=== PATIENT | female | born 1945 | race Caucasian/White ===

== ENCOUNTER → 2018-04-20 09:06 | Outpatient (CLI) | payer MEDICARE, OTHER, SELFPAY ==
[2018-04-20 10:35] LABS: Hemoglobin A1C% w Est Avg Glu 6.5 % (4.0-6.0)
== END ==
PROVIDERS: PCP Internal Medicine; Visit Provider Internal Medicine
DX: E11.9 Type 2 diabetes mellitus without complications (principal)
CPT/HCPCS: 36415; 83036

== ENCOUNTER → 2018-07-28 13:11 | Outpatient (CLI) | payer MEDICARE, OTHER, SELFPAY ==
[2018-07-28 17:01] LABS: Aspartate Aminotransferase 65 IU/L (14-36); BUN Creatinine Ratio 28.2 (6-22); Blood Urea Nitrogen 31 mg/dL (7-17); Calcium 10.3 mg/dL (8.4-10.2); Carbon Dioxide 28 mmol/L (22-32); Chloride 100 mmol/L (98-107); Cholesterol 173 mg/dL (140-199); Estimated Glomerular Filt Rate 48.6 mL/min (>60); Glucose 106 mg/dL (80-110); HDL Cholesterol 42 mg/dL (40-60); HEMOLYSIS < 15 (0-50); Potassium 4.3 mmol/L (3.4-5.1); Sodium 143 mmol/L (137-145); Triglycerides 491 mg/dL (35-150)
== END ==
PROVIDERS: Visit Provider Internal Medicine
DX: E78.2 Mixed hyperlipidemia (principal); I10 Essential (primary) hypertension
CPT/HCPCS: 36415; 80048; 80061; 84450

== ENCOUNTER → 2018-09-30 09:45 | Outpatient (CLI) | payer MEDICARE, OTHER, SELFPAY ==
--- NOTE | 2018-09-30 11:00 | DI.MG.S_ITS ---
Patient Name: ALTON TORIBIO date: 1945 Sex: F Attending Physician: Shima Indications: Date: 09/30/2018 10:02 At the request of: EVERARDO CHAN Procedure: MM screening mammo BI BILATERAL DIGITAL SCREENING MAMMOGRAM 3D/2D WITH CAD: 09/30/2018 CLINICAL: Routine screening. Family history of breast cancer. Comparison is made to exams dated: 08/28/2017 mammogram, 08/23/2016 mammogram, and 08/21/2015 mammogram - [facility]. The tissue of both breasts is extremely dense, which lowers the sensitivity of mammography. Current study was also evaluated with a Computer Aided Detection (CAD) system. There are benign post operative findings in the left breast. There also are benign vascular calcifications in both breasts. No significant masses, calcifications, or other findings are seen in either breast. There has been no significant interval change. IMPRESSION: There is no mammographic evidence of malignancy. A 1 year screening mammogram is recommended. This exam was interpreted at Station ID: [id number]. NOTE: For mammograms, a report in lay terms will be sent to the patient. Approximately 15% of breast malignancies will not be visualized mammographically. In the management of a palpable breast mass, a negative mammogram must not discourage biopsy of a clinically suspicious lesion. Electronically Signed By: Shell carroll/raoul:10/02/2018 09:25:05 letter sent: Normal Exam ACR BI-RADS Category 2: Benign Finding(s) 3342F Continued Report - Page 2 of 2 Patient Name: ALTON TORIBIO date: 1945 Sex: F Attending Physician: Shima Indications: Date: 09/30/2018 10:02 At the request of: EVERARDO CHAN Procedure: MM screening mammo BI
== END ==
PROVIDERS: PCP Internal Medicine; Visit Provider Internal Medicine
DX: Z12.31 Encounter for screening mammogram for malignant neoplasm of breast (principal); Z80.3 Family history of malignant neoplasm of breast
CPT/HCPCS: 77063; 77067

== ENCOUNTER → 2019-08-18 10:07 | Outpatient (CLI) | payer MEDICARE, OTHER, SELFPAY ==
--- NOTE | 2019-08-18 | DI.RAD.S_ITS ---
PROCEDURE: XR TOE LT MIN 2V INDICATIONS: Ganglion, unspecified ankle and foot TECHNIQUE: 3 views of the left toe(s) acquired. COMPARISON: None. FINDINGS: Bones: No fractures or dislocations. There is circumscribed, small periarticular erosive changes along the medial border of the first proximal phalanx. No suspicious bony lesions. Soft tissues: Soft tissue nodule overlies the dorsal medial aspect of the first interphalangeal joint. No soft tissue calcifications visible.. IMPRESSION: Bone and soft tissue changes adjacent to the first interphalangeal joint suspicious for gout. Osteoarthritis can also have this appearance. Dictated by: Jennifer Montenegro M.D. on 08/18/2019 at 15:06 Approved by: Jennifer Montenegro M.D. on 08/18/2019 at 15:09
== END ==
PROVIDERS: PCP Internal Medicine; Visit Provider Internal Medicine
DX: M67.472 Ganglion, left ankle and foot (principal)
CPT/HCPCS: 73660

== ENCOUNTER → 2019-10-01 10:49 | Outpatient (CLI) | payer MEDICARE, OTHER, SELFPAY ==
--- NOTE | 2019-10-01 | DI.MG.S_ITS ---
BILATERAL DIGITAL SCREENING MAMMOGRAM 3D/2D WITH CAD: 10/01/2019 CLINICAL: Routine screening. Comparison is made to exams dated: 08/28/2017 mammogram, 08/23/2016 mammogram, and 08/21/2015 mammogram - [facility]. The tissue of both breasts is extremely dense, which lowers the sensitivity of mammography. Current study was also evaluated with a Computer Aided Detection (CAD) system. There are benign vascular calcifications in both breasts. There also are benign post operative findings in the left breast. No significant masses, calcifications, or other findings are seen in either breast. There has been no significant interval change. IMPRESSION: There is no mammographic evidence of malignancy. A 1 year screening mammogram is recommended. This exam was interpreted at Station ID: [id number]. NOTE: For mammograms, a report in lay terms will be sent to the patient. Approximately 15% of breast malignancies will not be visualized mammographically. In the management of a palpable breast mass, a negative mammogram must not discourage biopsy of a clinically suspicious lesion. Electronically Signed By: Jennifer echeverria/raoul:10/01/2019 13:20:16 letter sent: Normal Exam ACR BI-RADS Category 2: Benign Finding(s) 3342F
== END ==
PROVIDERS: PCP Internal Medicine; Visit Provider Internal Medicine
DX: Z12.31 Encounter for screening mammogram for malignant neoplasm of breast (principal)
CPT/HCPCS: 77063; 77067

== ENCOUNTER → 2020-04-19 06:43 | Outpatient (CLI) | payer MEDICARE, OTHER, SELFPAY ==
--- NOTE | 2020-04-19 07:08 | DI.ECHO.S_ITS ---
Echocardiogram Report + + :Name: ALTON TORIBIO Study Date: 04/19/2020 Height: 62 in : :[facility] Weight: 145 lb : : Gender: Female BSA: 1.7 m2 : :: 1945 Age: 75 yrs BP: 108/64 mmHg: :Reason For Study: Shortness of breath : :Ordering Physician: MANNY, : :JOSUÉ Performed By: Sherly Valentine : :Referring: JOSUÉ BRYANT : + + Interpretation Summary The left ventricle appears normal in size and systolic function with an estimated ejection fraction of 60 to 65% without any focal wall motion abnormality. Diastolic function cannot be accurately assessed because of the presence of atrial fibrillation. The right ventricle appears normal in size and systolic function. Right ventricular systolic pressure is estimated to be at least 38 mmHg with a CVP estimated at 3 mmHg. There is moderate left atrial enlargement while right atrial size is normal. There is moderate to severe posterior mitral annular calcification which extends onto the posterior mitral valve leaflet which is relatively immobile, producing mild mitral stenosis with a mean gradient of 3.4 mmHg. There is mild to moderate eccentric mitral regurgitation directed anteriorly. There is moderate tricuspid regurgitation. The patient was in atrial fibrillation at 65 to 75 bpm throughout the exam. Procedure: A two-dimensional transthoracic echocardiogram with color flow and Doppler was performed. The study quality was technically adequate. There is no prior echocardiogram noted for this patient. The patient was in atrial fibrillation with heart rates between 65-75 bpm during the exam. Left Ventricle: The left ventricle is normal in size, wall thickness, and systolic function without any focal wall motion abnormalities. The estimated left ventricular end diastolic volume is 59 ml. The ejection fraction is estimated to be 60-65%. Diastolic function could not be accurately assessed due to atrial fibrillation. Right Ventricle: The right ventricle is normal in size and function. Atria: The left atrium is moderately dilated. Right atrial size is normal. There is no Doppler evidence for an interatrial shunt. Mitral Valve: There is moderate to severe posterior mitral annular calcification which extends onto the posterior mitral valve leaflet which is relatively immobile, producing mild mitral stenosis with a mean gradient of 3.4 mmHg. The mitral valve mean gradient is 3.4 mmHg. There is mild to moderate mitral regurgitation. The mitral regurgitant jet is eccentrically directed. Aortic Valve: The aortic valve is trileaflet. The aortic valve is mildly calcified. The aortic valve opens well. There is no aortic valve stenosis. No aortic regurgitation is present. Tricuspid Valve: The tricuspid valve is normal in structure and function. There is moderate tricuspid regurgitation. The right ventricular systolic pressure is estimated to be at least 38 mmHg based on an estimated right atrial pressure of 3 mm Hg. Pulmonic Valve: The pulmonic valve is normal in structure and function. There is no pulmonic valvular regurgitation. Great Vessels: The aortic root is normal size. The dimensions of the ascending aorta are normal. The IVC is of normal diameter and collapses greater than 50% with a sniff. This suggests a low right atrial pressure of 3 mm Hg. Pericardium/ Pleura There is no pericardial effusion. There is no pleural effusion. MMode/2D Measurements & Calculations LVIDd: 3.8 cm LVOT diam: 1.9 cm LVIDs: 2.6 cm Ao root diam: 2.9 cm FS: 30.2 % asc Aorta Diam: 2.7 cm EPSS: 0.95 cm Ao Arch Diam (Prox Trans): 2.8 cm IVSd: 1.0 cm LVPWd: 0.98 cm LV paredes. diameter/BSA (cm/m^2): 2.3 LV sys. diameter/BSA (cm/m^2): 1.6 LA A2 area: 20.5 cm2 RA long axis: 5.0 cm LA A4 area: 24.1 cm2 RA area: 16.2 cm2 LA length (vol): 5.7 cm RA vol: 44.7 ml LA vol: 73.6 ml RA : 26.8 ml/m2 LA vol index: 44.1 ml/m2 IVC diam: 1.6 cm RVD1 (basal): 3.7 cm TAPSE: 1.7 cm Doppler Measurements & Calculations Ao V2 max: 126.0 cm/sec LVOT Max Mahesh: 74.3 cm/sec Ao V2 mean: 85.8 cm/sec LV V1 max P.2 mmHg Ao max P.3 mmHg LV V1 VTI: 17.3 cm Ao mean P.2 mmHg DIAMOND(I,D): 1.8 cm2 Ao V2 VTI: 27.7 cm DIAMOND(V,D): 1.7 cm2 sev ratio: 0.62 DIAMOND indexed to BSA (cm^2/m^2): 1.1 MV E max mahesh: 135.9 cm/sec TR max mahesh: 289.5 cm/sec MV A max mahesh: 1.2 cm/sec TR max P.9 mmHg MV E/A: 112.8 PA V2 max: 63.2 cm/sec Med Peak E' Mahesh: 5.9 cm/sec PA V2 mean: 45.8 cm/sec E/E' med: 23.0 PA mean P.93 mmHg Lat Peak E' Mahesh: 9.1 cm/sec PA pr(Accel): 25.9 mmHg E/E' lat: 15.0 E/e' average: 19.0 MV dec time: 0.23 sec MVA(VTI): 1.6 cm2 MV V2 mean: 78.2 cm/sec SV(LVOT): 49.8 ml MV mean P.4 mmHg MV V2 VTI: 30.8 cm Reading Physician:SPIKE
== END ==
PROVIDERS: PCP Internal Medicine; Referring Provider Internal Medicine; Visit Provider Internal Medicine
DX: I08.1 Rheumatic disorders of both mitral and tricuspid valves (principal); R06.02 Shortness of breath; I48.91 Unspecified atrial fibrillation
CPT/HCPCS: 93306

== ENCOUNTER → 2020-08-30 15:23 | Outpatient (ROUT) | payer MEDICARE, OTHER, SELFPAY ==
[2020-08-30 15:37] LABS: Add Manual Diff / Slide Review NO; Basophils Absolute Auto 100 /uL (0-100); Basophils Percent Auto 0.8 % (0-2); Eosinophils Absolute Auto 200 /uL (0-450); Eosinophils Percent Auto 2.8 % (2-4); Hematocrit 35.9 % (36-46); Hemoglobin 11.8 g/dL (12.0-16.0); Lymphocytes Absolute Auto 1600 /uL (1100-4500); Lymphocytes Percent Auto 21.4 % (25-40); Mean Corpuscular Hemoglobin 29.2 PG (26-34); Mean Corpuscular Volume 88.7 fL (80-100); Monocytes Absolute Auto 600 /uL (0-900); Monocytes Percent Auto 7.6 % (3-14); Neutrophils Absolute Auto 5000 /uL (1500-7000); Neutrophils Percent Auto 67.4 % (50-75); Platelet Count 199 X10^3/uL (150-400); Red Blood Cell Count 4.05 X10^6/uL (4.0-5.2); Red Cell Distribution Width 14.2 % (11.6-14.8); White Blood Cell Count 7.4 X10^3/uL (4.5-11.0)
[2020-08-30 15:48] LABS: Alanine Aminotransferase 35 IU/L (<35); Albumin 4.6 g/dL (3.5-5.0); Albumin Globulin Ratio 1.4 (1.0-2.8); Alkaline Phosphatase 84 U/L (38-126); Aspartate Aminotransferase 39 IU/L (14-36); BUN Creatinine Ratio 26.6 (6-22); Bilirubin Total 0.5 mg/dL (0.2-1.3); Blood Urea Nitrogen 25 mg/dL (7-17); Calcium 10.1 mg/dL (8.4-10.2); Carbon Dioxide 24 mmol/L (22-32); Chloride 103 mmol/L (98-107); Cholesterol 128 mg/dL (140-199); Estimated Glomerular Filt Rate 57.9 mL/min (>60); Globulin 3.4 g/dL (1.7-4.1); Glucose 176 mg/dL (80-110); HDL Cholesterol 38 mg/dL (40-60); HEMOLYSIS < 15 (0-50); Potassium 4.4 mmol/L (3.4-5.1); Sodium 139 mmol/L (137-145); Triglycerides 418 mg/dL (35-150); Uric Acid 8.6 mg/dL (2.5-6.2)
[2020-08-30 16:15] LABS: TSH w/ Reflex to FT4 3.77 uIU/mL (0.47-4.68)
[2020-08-30 16:35] LABS: Vitamin B12 577 pg/mL (239-931)
== END ==
PROVIDERS: PCP Internal Medicine; Visit Provider Internal Medicine
DX: E53.8 Deficiency of other specified B group vitamins (principal); E78.2 Mixed hyperlipidemia; E11.69 Type 2 diabetes mellitus with other specified complication
CPT/HCPCS: 80053; 80061; 82607; 84443; 84550; 85025

== ENCOUNTER → 2020-10-03 10:28 | Outpatient (CLI) | payer MEDICARE, OTHER, SELFPAY ==
--- NOTE | 2020-10-03 10:32 | DI.MG.S_ITS ---
BILATERAL DIGITAL SCREENING MAMMOGRAM 3D/2D WITH CAD: 10/03/2020 CLINICAL: Routine screening. Family history of breast cancer. Comparison is made to exams dated: 10/01/2019 mammogram, 09/30/2018 mammogram, and 08/28/2017 mammogram - [facility]. The tissue of both breasts is extremely dense, which lowers the sensitivity of mammography. Current study was also evaluated with a Computer Aided Detection (CAD) system. There are benign calcifications in both breasts. There also are benign vascular calcifications in both breasts. Additionally, there are benign post operative findings in the left breast. No significant masses, calcifications, or other findings are seen in either breast. There has been no significant interval change. IMPRESSION: BENIGN There is no mammographic evidence of malignancy. A 1 year screening mammogram is recommended. This exam was interpreted at Station ID: [id number]. NOTE: For mammograms, a report in lay terms will be sent to the patient. Approximately 15% of breast malignancies will not be visualized mammographically. In the management of a palpable breast mass, a negative mammogram must not discourage biopsy of a clinically suspicious lesion. Electronically Signed By: Lyndon Richter acr/penrad:10/03/2020 10:56:02 letter sent: Normal Exam ACR BI-RADS Category 2: Benign Finding(s) 3342F
== END ==
PROVIDERS: PCP Internal Medicine; Referring Provider Internal Medicine; Visit Provider Internal Medicine
DX: Z12.31 Encounter for screening mammogram for malignant neoplasm of breast (principal); Z80.3 Family history of malignant neoplasm of breast
CPT/HCPCS: 77063; 77067

== ENCOUNTER → 2020-10-16 09:27 | Outpatient (CLI) | payer MEDICARE, OTHER, SELFPAY ==
[2020-10-16 10:09] LABS: COVID19 -Nasal RAPID Negative (Negative)
== END ==
PROVIDERS: PCP Internal Medicine; Visit Provider Physician Assistant
DX: Z01.812 Encounter for preprocedural laboratory examination (principal); Z20.822 Contact with and (suspected) exposure to COVID-19
CPT/HCPCS: 87635; C9803

== ENCOUNTER 2020-10-18 09:55 | Day surgery (SDC) | payer MEDICARE, OTHER, SELFPAY ==
[2020-10-18] VITALS (9 sets, daily range): BP systolic 82–116; BP diastolic 41–60; PULSE 68–83; RESP 10–16; TEMP 36.1–36.8; O2SAT 91–99; BMI 25.6
--- NOTE | 2020-10-18 | PATH_ITS ---
[facility] Accession Number: [id number] . 01 Material submitted: . PART A: colon - APPENDICEAL ORIFICE BIOPSY PART B: cecum - CECAL POLYP PART C: colon - ASCENDING COLON POLYP X2 . 02 Diagnosis: A. Appendicial Orifice, Biopsy: Colonic mucosa with no diagnostic abnormality. Negative for active, chronic, and microscopic colitis. Negative for dysplasia and malignancy. . B. Cecum, Polyp, Biopsy: Sessile serrated adenoma. . C. Ascending Colon, Polyps: Sessile serrated adenomas. BFI 10/23/2020 1351 Local . 02 Electronically signed: . Mendy Arredondo MD, Pathologist NPI- [id number] . 01 Gross description: . Part A: APPENDICEAL ORIFICE BIOPSY: Received in formalin is 1 fragment(s) of brooks, soft tissue measuring 0.1 x 0.1 x 0.1 cm submitted entirely in 1 cassette(s) Part B: CECAL POLYP: Received in formalin are 2 fragment(s) of brooks, soft tissue measuring 0.3 x 0.2 x 0.2 cm to 0.5 x 0.3 x 0.3 cm submitted entirely in 1 cassette(s) Part C: ASCENDING COLON POLYP X2: Received in formalin are 2 fragment(s) of brooks, soft tissue measuring 0.6 x 0.4 x 0.4 cm to 0.8 x 0.5 x 0.3 cm submitted entirely in 1 cassette(s) /MANDI 10/19/2020 1904 Local . 02 Pathologist provided ICD-10: D12.0, D12.2 . 02 CPT . 847198, 665327, 815674 Performed at: [address] [address], [place], [place] [id number] MD Teo Lechuga MD Phone: [phone] Performed at: 02 [facility] [address] [place] [id number] MD Mendy Arredondo MD Phone: [phone]
--- NOTE | 2020-10-18 08:17 | PM.HP.1 ---
History of Present Illness History of Present Illness Date Patient Seen: 10/18/20 Chief complaint: SDC Narrative: 75-year-old female with a history of sessile serrated adenoma near the appendiceal orifice on colonoscopy 06/2017 with here for surveillance Patient History Medical History (Updated 10/18/20 @ 10:33 by Jody Crisostomo RN) Diabetes Hepatitis B antibody positive History of colon polyps Meds Home Medications and Allergies Home Medications Medication Instructions Recorded Confirmed Type chlorthalidone 12.5 mg PO QDAY #0 07/09/17 10/18/20 History empagliflozin [Jardiance] 25 mg PO QDAY #0 07/09/17 History rosuvastatin [Crestor] 10 mg PO QDAY #0 07/09/17 10/18/20 History amlodipine 2.5 mg PO DAILY 10/18/20 10/18/20 History aspirin 81 mg PO DAILY 10/18/20 10/18/20 History glimepiride 1 mg PO BID 10/18/20 10/18/20 History lisinopril 20 mg PO BID 10/18/20 10/18/20 History metformin 1,000 mg PO QPM 10/18/20 10/18/20 History metoprolol tartrate 100 mg PO BID 10/18/20 10/18/20 History Allergies Allergy/AdvReac Type Severity Reaction Status Date / Time metformin [METFORMIN] AdvReac Mild Diarrhea Unverified 10/18/20 10:11 adhesive tape AdvReac Verified 10/18/20 10:12 Exam Narrative Exam Narrative: General: Patient is well developed, not in apparent distress Cardiovascular: Regular rate and rhythm, no murmurs, rubs, or gallops; no evidence of edema; no palpable abdominal aortic aneurysm Gastrointestinal: Normoactive bowel sounds, soft, nontender, nondistended, no rebound tenderness, no hepatosplenomegaly, no evidence of hernia Assessment & Plan Assessment & Plan narrative: 75-year-old female with a history of sessile serrated adenoma near the appendiceal orifice who is here for surveillance Regarding the procedure(s), the risks and potential complications, benefits, and alternatives (including not doing the procedure) were discussed with the patient. The risks include but are not limited to bleeding, splenic injury, infection, perforation which may require surgical intervention, missed lesions, and adverse reactions to sedative medicines. After a question and answer period, the patient agreed to proceed with the procedure(s) and gives informed consent.
[2020-10-18] MEDS: SODIUM CHLORIDE 0.9% 1,000 ML 70 ML IV (10:19)
--- NOTE | 2020-10-18 10:50 | PM.OP.ENDO ---
Operative Date/Time/Diagnoses Date of procedure: 10/18/20 Procedure Notes Procedure in detail: Surgeon: Danny Holman MD Procedure: Colonoscopy with polypectomy Preoperative diagnosis: Colon polyp surveillance; sessile serrated adenoma near appendiceal orifice on prior colonoscopy Postoperative diagnosis: Colon polyps x4 status post polypectomy; sigmoid diverticulosis; grade 1 internal hemorrhoids; biopsy performed of the appendiceal orifice given history of sessile serrated adenoma Medications: Conscious sedation using 4 mg IV of Midazolam and 100 mcg IV of Fentanyl Preanesthesia Assessment An H and P was performed/updated and the Px?s ASA class is 2. The procedure was discussed in detail with the patient. The potential risks and complications including infection, bleeding, missed lesions, perforation, need for surgery in case of perforation, prolonged hospital stay, and were explained. A brief question and answer period was allotted and once all questions were answered, informed consent was obtained. The patient was brought back to the procedure room and placed on standard monitoring. The patient?s vital signs were monitored continuously throughout the entire procedure. Prior to starting, a timeout was performed to confirm the patient?s identity, allergies, medications, and procedure. Procedure in detail The patient was placed in left lateral decubitus position and once adequate sedation was obtained a SHIVA was performed. The digital rectal examination did not reveal any palpable lesions. The tip of the colonoscope was placed in the anal canal and advanced without difficulty all the way to the cecum which was identified by the appendiceal orifice and the ileocecal valve. Careful examination of all shaffer of the colon was performed with irrigation of any residual stool. The appendiceal orifice appeared normal however given the history of a sessile serrated adenoma on prior biopsies, a sample was taken by means of cold Jumbo forceps In the cecum, a 2 mm sessile polyp was found which was removed by means of cold Jumbo forceps. Resection and retrieval was complete with minimal bleeding In the cecum, a 4 mm sessile polyp was found which was removed by means of cold snare. Resection and retrieval was complete with minimal bleeding In the ascending colon, 2 sessile polyps measuring 4 mm were found and were removed by means of cold snare. Resection and retrieval was complete with minimal bleeding. In the sigmoid colon, there was note of a few medium-sized diverticula. Retroflexion was performed in the rectum which revealed grade 1 internal hemorrhoids The patient tolerated the procedure well and will be brought back to the recovery area to be discharged once criteria are met. The prep was judged to be good and adequate to identify polyps less than 5 mm. The withdrawal time was 11 minutes. The total physician intraservice time was 17 minutes. Complications There were no complications and estimated blood loss was minimal. Recommendations: Resume previous diet Continue outPx medications Follow up pathology results Repeat colonoscopy in 3 or 5 or 7 years depending on pathology results An emergency contact number was given to the patient for any complications related to the procedure
[2020-10-18] MEDS: fentaNYL 250 MCG/5 ML INJ IV (10:54)
[2020-10-18] MEDS: MIDAZOLAM 5 MG/5 ML VIAL IV (10:54)
== END 2020-10-18 12:22 | disposition home or self-care (01) ==
PROVIDERS: PCP Internal Medicine; Referring Provider Internal Medicine Gastroenterology; Visit Provider Internal Medicine Gastroenterology
PROC: 0DJD8ZZ Inspection of Lower Intestinal Tract, Via Natural or Artificial Opening Endoscopic (ICD-10-PCS; CPT 45378; principal; 2020-10-18 11:00)
DX: Z12.11 Encounter for screening for malignant neoplasm of colon (principal); Z86.010 Personal history of colon polyps; K57.30 Diverticulosis of large intestine without perforation or abscess without bleeding; K64.0 First degree hemorrhoids; E11.9 Type 2 diabetes mellitus without complications; Z79.84 Long term (current) use of oral hypoglycemic drugs; D12.0 Benign neoplasm of cecum; D12.2 Benign neoplasm of ascending colon
CPT/HCPCS: 45385; 45380; J2250; J3010

== ENCOUNTER → 2021-03-23 18:34 | Outpatient (ROUT) | payer MEDICARE, OTHER, SELFPAY ==
[2021-03-23 19:14] LABS: Alanine Aminotransferase 48 IU/L (<35); Albumin 4.4 g/dL (3.5-5.0); Albumin Globulin Ratio 1.3 (1.0-2.8); Alkaline Phosphatase 78 U/L (38-126); Aspartate Aminotransferase 46 IU/L (14-36); Bilirubin Total 0.6 mg/dL (0.2-1.3); Blood Urea Nitrogen 22 mg/dL (7-17); Calcium 10.6 mg/dL (8.4-10.2); Carbon Dioxide 25 mmol/L (22-32); Chloride 102 mmol/L (98-107); Estimated Glomerular Filt Rate 53.8 mL/min (>60); Globulin 3.3 g/dL (1.7-4.1); Glucose 110 mg/dL (80-110); HEMOLYSIS < 15 (0-50); Potassium 4.4 mmol/L (3.4-5.1); Sodium 138 mmol/L (137-145); Total Protein 7.7 g/dL (6.3-8.2)
[2021-03-23 19:33] LABS: Add Manual Diff / Slide Review NO; Basophils Absolute Auto 100 /uL (0-100); Basophils Percent Auto 0.9 % (0-2); Eosinophils Absolute Auto 200 /uL (0-450); Eosinophils Percent Auto 2.8 % (2-4); Hematocrit 37.1 % (36-46); Hemoglobin 12.7 g/dL (12.0-16.0); Lymphocytes Absolute Auto 1900 /uL (1100-4500); Lymphocytes Percent Auto 28.2 % (25-40); Mean Corpuscular HGB Conc 34.2 % (30-36); Mean Corpuscular Hemoglobin 30.6 PG (26-34); Mean Corpuscular Volume 89.3 fL (80-100); Monocytes Absolute Auto 600 /uL (0-900); Monocytes Percent Auto 8.5 % (3-14); Neutrophils Absolute Auto 3900 /uL (1500-7000); Neutrophils Percent Auto 59.6 % (50-75); Platelet Count 173 X10^3/uL (150-400); Red Blood Cell Count 4.15 X10^6/uL (4.0-5.2); Red Cell Distribution Width 13.8 % (11.6-14.8); White Blood Cell Count 6.6 X10^3/uL (4.5-11.0)
[2021-03-23 19:47] LABS: TSH w/ Reflex to FT4 3.24 uIU/mL (0.47-4.68)
== END ==
PROVIDERS: PCP Internal Medicine; Visit Provider Internal Medicine
DX: I48.0 Paroxysmal atrial fibrillation (principal)
CPT/HCPCS: 80053; 84443; 85025

== ENCOUNTER → 2021-10-10 08:19 | Outpatient (CLI) | payer MEDICARE, OTHER, SELFPAY ==
--- NOTE | 2021-10-10 08:23 | DI.MG.S_ITS ---
BILATERAL DIGITAL SCREENING MAMMOGRAM 3D/2D WITH CAD: 10/10/2021 CLINICAL: Routine screening. Family history of breast cancer. Comparison is made to exams dated: 10/03/2020 mammogram, 10/01/2019 mammogram, and 09/30/2018 mammogram - [facility]. The tissue of both breasts is extremely dense, which lowers the sensitivity of mammography. Current study was also evaluated with a Computer Aided Detection (CAD) system. There are benign calcifications in both breasts. There also are benign vascular calcifications in both breasts. Additionally, there are benign post operative findings in the left breast. No significant masses, calcifications, or other findings are seen in either breast. There has been no significant interval change. IMPRESSION: BENIGN There is no mammographic evidence of malignancy. A 1 year screening mammogram is recommended. This exam was interpreted at Station ID: [id number]. NOTE: For mammograms, a report in lay terms will be sent to the patient. Approximately 15% of breast malignancies will not be visualized mammographically. In the management of a palpable breast mass, a negative mammogram must not discourage biopsy of a clinically suspicious lesion. Electronically Signed By: Prem soto/raoul:10/10/2021 09:26:52 letter sent: Normal Exam ACR BI-RADS Category 2: Benign Finding(s) 3342F
== END ==
PROVIDERS: PCP Internal Medicine; Referring Provider Internal Medicine; Visit Provider Internal Medicine
DX: Z12.31 Encounter for screening mammogram for malignant neoplasm of breast (principal); Z80.3 Family history of malignant neoplasm of breast
CPT/HCPCS: 77063; 77067

== ENCOUNTER → 2022-03-25 10:39 | Outpatient (CLI) | payer MEDICARE, OTHER, SELFPAY ==
[2022-03-25 11:40] LABS: Hematocrit 38.1 % (36-46); Hemoglobin 13.2 g/dL (12.0-16.0); Mean Corpuscular HGB Conc 34.6 % (30-36); Mean Corpuscular Hemoglobin 30.5 PG (26-34); Platelet Count 186 X10^3/uL (150-400); Red Blood Cell Count 4.33 X10^6/uL (4.0-5.2); Red Cell Distribution Width 13.7 % (11.6-14.8); White Blood Cell Count 6.5 X10^3/uL (4.5-11.0)
[2022-03-25 11:45] LABS: Hemoglobin A1C% w Est Avg Glu 6.4 % (4.0-6.0)
[2022-03-25 11:58] LABS: Creatinine Urine Random 43.5 mg/dL
[2022-03-25 12:02] LABS: Alanine Aminotransferase 36 IU/L (<35); Albumin 4.9 g/dL (3.5-5.0); Albumin Globulin Ratio 1.4 (1.0-2.8); Alkaline Phosphatase 72 U/L (38-126); Aspartate Aminotransferase 43 IU/L (14-36); BUN Creatinine Ratio 31.4 (6-22); Bilirubin Total 0.5 mg/dL (0.2-1.3); Blood Urea Nitrogen 33 mg/dL (7-17); Calcium 9.8 mg/dL (8.4-10.2); Carbon Dioxide 24 mmol/L (22-32); Chloride 102 mmol/L (98-107); Cholesterol 130 mg/dL (140-199); Estimated Glomerular Filt Rate 54 mL/min (>60); Globulin 3.6 g/dL (1.7-4.1); Glucose 141 mg/dL (80-110); HDL Cholesterol 38 mg/dL (40-60); HEMOLYSIS < 15 (0-50); LDL Cholesterol Calculated 24 mg/dL (<100); Potassium 4.2 mmol/L (3.4-5.1); Sodium 137 mmol/L (137-145); Total Protein 8.5 g/dL (6.3-8.2); Triglycerides 340 mg/dL (35-150)
[2022-03-25 12:03] LABS: Microalbumi Creatinin Ratio Ur 64.3 ug/mg CR (<30); Microalbumin Urine Random 2.8 mg/dL (0-1.6)
[2022-03-25 13:49] LABS: TSH w/ Reflex to FT4 2.11 uIU/mL (0.47-4.68)
== END ==
PROVIDERS: PCP Internal Medicine; Referring Provider Internal Medicine; Visit Provider Internal Medicine
DX: E11.69 Type 2 diabetes mellitus with other specified complication (principal); E78.2 Mixed hyperlipidemia; E78.5 Hyperlipidemia, unspecified; I10 Essential (primary) hypertension; I48.0 Paroxysmal atrial fibrillation
CPT/HCPCS: 36415; 80053; 80061; 82043; 82570; 83036; 84443; 85027

== ENCOUNTER → 2022-10-10 11:56 | Outpatient (CLI) | payer MEDICARE, OTHER, SELFPAY ==
[2022-10-10 13:47] LABS: Hemoglobin A1C% w Est Avg Glu 6.3 % (4.0-6.0)
[2022-10-10 14:22] LABS: Alanine Aminotransferase 35 IU/L (<35); Albumin 4.7 g/dL (3.5-5.0); Albumin Globulin Ratio 1.4 (1.0-2.8); Alkaline Phosphatase 71 U/L (38-126); Aspartate Aminotransferase 36 IU/L (14-36); BUN Creatinine Ratio 23.7 (6-22); Bilirubin Total 0.5 mg/dL (0.2-1.3); Blood Urea Nitrogen 23 mg/dL (7-17); Calcium 9.8 mg/dL (8.4-10.2); Carbon Dioxide 22 mmol/L (22-32); Chloride 102 mmol/L (98-107); Cholesterol 122 mg/dL (140-199); Estimated Glomerular Filt Rate 60 mL/min (>60); Globulin 3.4 g/dL (1.7-4.1); Glucose 93 mg/dL (80-110); HDL Cholesterol 45 mg/dL (40-60); HEMOLYSIS < 15 (0-50); LDL Cholesterol Calculated 28 mg/dL (<100); Potassium 4.6 mmol/L (3.4-5.1); Sodium 138 mmol/L (137-145); Total Protein 8.1 g/dL (6.3-8.2); Triglycerides 246 mg/dL (35-150)
== END ==
PROVIDERS: PCP Internal Medicine; Referring Provider Internal Medicine; Visit Provider Internal Medicine
DX: E11.69 Type 2 diabetes mellitus with other specified complication (principal); E78.2 Mixed hyperlipidemia; E78.5 Hyperlipidemia, unspecified; I10 Essential (primary) hypertension
CPT/HCPCS: 36415; 80053; 80061; 83036

== ENCOUNTER → 2022-10-16 08:39 | Outpatient (CLI) | payer MEDICARE, OTHER, SELFPAY ==
--- NOTE | 2022-10-16 | DI.MG.S_ITS ---
BILATERAL DIGITAL SCREENING MAMMOGRAM 3D/2D WITH CAD: 10/16/2022 CLINICAL: Routine screening. Family history of breast cancer. Comparison is made to exams dated: 10/10/2021 mammogram, 10/03/2020 mammogram, and 10/01/2019 mammogram - [facility]. Both breasts are extremely dense, which lowers the sensitivity of mammography (category d />75% glandular tissue). Current study was also evaluated with a Computer Aided Detection (CAD) system. There are benign calcifications in both breasts. There also are benign vascular calcifications in both breasts. Additionally, there are benign post operative findings in the left breast. No significant masses, calcifications, or other findings are seen in either breast. There has been no significant interval change. IMPRESSION: BENIGN There is no mammographic evidence of malignancy. A 1 year screening mammogram is recommended. Based on Tyrer-Cuzick model (a risk assessment model), the patient's lifetime risk is 27.1% and her 10 year risk is 0.0%. If a patient has an elevated risk, a more comprehensive evaluation should be considered and/or a referral to a genetic counselor. The [place] [employer], [employer], and NCCN Guidelines advise the consideration of Breast MRI as an adjunct to screening mammography in patients whose Lifetime risk to develop breast cancer is 20% or higher. This exam was interpreted at Station ID: [id number]. NOTE: For mammograms, a report in lay terms will be sent to the patient. Approximately 15% of breast malignancies will not be visualized mammographically. In the management of a palpable breast mass, a negative mammogram must not discourage biopsy of a clinically suspicious lesion. Electronically Signed By: Otoniel fernandez/raoul:10/16/2022 10:22:06 letter sent: Normal Exam ACR BI-RADS Category 2: Benign Finding(s) 3342F
== END ==
PROVIDERS: PCP Internal Medicine; Referring Provider Internal Medicine; Visit Provider Internal Medicine
DX: M85.852 Other specified disorders of bone density and structure, left thigh (principal); Z12.31 Encounter for screening mammogram for malignant neoplasm of breast; Z80.3 Family history of malignant neoplasm of breast; Z13.820 Encounter for screening for osteoporosis; Z78.0 Asymptomatic menopausal state
CPT/HCPCS: 77063; 77067; 77080

== ENCOUNTER → 2023-01-23 08:33 | Outpatient (CLI) | payer MEDICARE, OTHER, SELFPAY ==
[2023-01-23 10:10] LABS: BUN Creatinine Ratio 21.1 (6-22); Blood Urea Nitrogen 23 mg/dL (7-17); Calcium 9.2 mg/dL (8.4-10.2); Carbon Dioxide 28 mmol/L (22-32); Chloride 98 mmol/L (98-107); Estimated Glomerular Filt Rate 52 mL/min (>60); Glucose 232 mg/dL (80-110); HEMOLYSIS < 15 (0-50); Potassium 4.3 mmol/L (3.4-5.1); Sodium 136 mmol/L (137-145); Uric Acid 6.9 mg/dL (2.5-6.2)
[2023-01-23 12:56] LABS: Creatinine Urine Random 36.1 mg/dL
[2023-01-23 12:59] LABS: Microalbumi Creatinin Ratio Ur 41.5 ug/mg CR (<30); Microalbumin Urine Random 1.5 mg/dL (0-1.6)
[2023-01-23 21:12] LABS: Labcorp Hemoglobin (Hb) A1c 7.1 % (4.8-5.6)
== END ==
PROVIDERS: PCP Internal Medicine; Referring Provider Internal Medicine; Visit Provider Internal Medicine
DX: E78.5 Hyperlipidemia, unspecified (principal); I10 Essential (primary) hypertension; M10.9 Gout, unspecified; E11.69 Type 2 diabetes mellitus with other specified complication
CPT/HCPCS: 36415; 80048; 82043; 82570; 83036; 84550

== ENCOUNTER → 2023-07-21 09:12 | Outpatient (CLI) | payer MEDICARE, OTHER, SELFPAY ==
[2023-07-21 09:57] LABS: Hemoglobin A1C% w Est Avg Glu 7.6 % (4.0-6.0)
[2023-07-21 10:13] LABS: BUN Creatinine Ratio 22.2 (6-22); Blood Urea Nitrogen 28 mg/dL (7-17); Calcium 10.4 mg/dL (8.4-10.2); Carbon Dioxide 27 mmol/L (22-32); Chloride 99 mmol/L (98-107); Estimated Glomerular Filt Rate 43 mL/min (>60); Glucose 204 mg/dL (80-110); HEMOLYSIS < 15 (0-50); Potassium 3.9 mmol/L (3.4-5.1); Sodium 137 mmol/L (137-145)
== END ==
PROVIDERS: PCP Internal Medicine; Referring Provider Internal Medicine; Visit Provider Internal Medicine
DX: E11.69 Type 2 diabetes mellitus with other specified complication (principal); N18.31 Chronic kidney disease, stage 3a; E78.5 Hyperlipidemia, unspecified
CPT/HCPCS: 36415; 80048; 83036

== ENCOUNTER → 2023-11-17 16:49 | Outpatient (CLI) | payer MEDICARE, OTHER, SELFPAY ==
--- NOTE | 2023-11-17 | DI.MG.S_ITS ---
BILATERAL DIGITAL SCREENING MAMMOGRAM 3D/2D WITH CAD: 11/17/2023 CLINICAL: Routine screening. Family history of breast cancer. Comparison is made to exams dated: 10/16/2022 mammogram, 10/10/2021 mammogram, and 10/03/2020 mammogram - [facility]. Both breasts are extremely dense, which lowers the sensitivity of mammography (category d />75% glandular tissue). Current study was also evaluated with a Computer Aided Detection (CAD) system. There are benign calcifications in both breasts. There also are benign vascular calcifications in both breasts. Additionally, there are benign post operative findings in the left breast. No significant masses, calcifications, or other findings are seen in either breast. There has been no significant interval change. IMPRESSION: BENIGN There is no mammographic evidence of malignancy. A 1 year screening mammogram is recommended. Based on Tyrer-Cuzick model (a risk assessment model), the patient's lifetime risk is 24.3% and her 10 year risk is 0.0%. If a patient has an elevated risk, a more comprehensive evaluation should be considered and/or a referral to a genetic counselor. The [place] [employer] [employer], [employer], and NCCN Guidelines advise the consideration of Breast MRI as an adjunct to screening mammography in patients whose Lifetime risk to develop breast cancer is 20% or higher. This exam was interpreted at Station ID: [id number]. NOTE: For mammograms, a report in lay terms will be sent to the patient. Approximately 15% of breast malignancies will not be visualized mammographically. In the management of a palpable breast mass, a negative mammogram must not discourage biopsy of a clinically suspicious lesion. Electronically Signed By: Prem soto/raoul:11/18/2023 08:38:27 letter sent: Normal Exam ACR BI-RADS Category 2: Benign Finding(s) 3342F
== END ==
PROVIDERS: PCP Internal Medicine; Referring Provider Internal Medicine; Visit Provider Internal Medicine
DX: Z12.31 Encounter for screening mammogram for malignant neoplasm of breast (principal); Z80.3 Family history of malignant neoplasm of breast; R92.343 Mammographic extreme density, bilateral breasts
CPT/HCPCS: 77063; 77067

== ENCOUNTER 2024-01-07 09:29 | Day surgery (SDC) | payer MEDICARE, OTHER, SELFPAY ==
[2024-01-07] VITALS (8 sets, daily range): BP systolic 79–119; BP diastolic 46–68; PULSE 76–106; RESP 11–24; TEMP 36.2–36.4; O2SAT 93–99
--- NOTE | 2024-01-07 | PATH_ITS ---
[facility] Accession Number: [id number] No. of containers..01 Tissue . 01 Material submitted: . colon - COLON, POLYP @ 45 CM . 01 Diagnosis: COLON, POLYP @ 45 CM: Tubular adenoma. STO 01/09/20241720 Local . 01 Electronically signed: . Teo Lechuga MD, Pathologist NPI- [id number] . 01 Gross description: . POLYP @ 45 CM: Received in formalin is 1 fragment(s) of brooks, soft tissue measuring 0.4 x 0.4 x 0.2 cm submitted entirely in 1 cassette(s) /MANDI 01/09/20241720 Local . 01 Pathologist provided ICD-10: D12.6 . 01 CPT . 529148 Specimen Comment: A courtesy copy of this report has been sent to [phone] Performed at: 01 [facility] [address] [place] [address] [address], [place], [place] [id number] MD Teo Lechuga MD Phone: [phone]
--- NOTE | 2024-01-07 08:55 | PM.HP.1 ---
History of Present Illness History of Present Illness Date Patient Seen: 01/07/24 Chief complaint: SDC Narrative: History of sessile serrated adenomas with last colonoscopy negative. Need for follow-up colonoscopy. [facility] Medical History (Updated 07/21/23 @ 08:41 by Job Ronquillo MD) Stage 3a chronic kidney disease (CKD) Osteopenia Mixed hyperlipidemia Essential hypertension DM type 2 with diabetic dyslipidemia Chronic anticoagulation Paroxysmal atrial fibrillation Wears glasses Gout Flu Rubella Measles Chicken pox Hepatitis B antibody positive (~1967) History of colon polyps Surgical History Anesthesia History of breast biopsy History of cataract removal with insertion of prosthetic lens (~2015) History of hysterectomy (~1993) Family History Father Hypertension Mother Breast cancer Brother Diabetes mellitus Hypertension Sister Breast cancer Social History details: (Aashish) household members: spouse Smoking Status: Former smoker Meds Home Medications and Allergies Home Medications Medication Instructions Recorded Confirmed Type amlodipine 2.5 mg tablet 2.5 mg PO DAILY #90 tabs 12/08/23 Rx apixaban 5 mg tablet (Eliquis) 5 mg PO BID #180 tabs 12/08/23 Rx chlorthalidone 25 mg tablet 25 mg PO Q OTHER DAY #90 tabs 12/08/23 Rx empagliflozin 25 mg tablet 25 mg PO DAILY #90 tabs 12/08/23 Rx (Jardiance) glimepiride 1 mg tablet 1 mg PO DAILY #90 tabs 12/08/23 Rx lisinopril 20 mg tablet 20 mg PO BID #180 tabs 12/08/23 Rx metoprolol tartrate 100 mg tablet 100 mg PO BID #180 tabs 12/08/23 Rx rosuvastatin 10 mg tablet (Crestor) 10 mg PO QDAY #90 tabs 12/08/23 Rx Allergies Allergy/AdvReac Type Severity Reaction Status Date / Time metformin AdvReac Intermediate Diarrhea Verified 07/21/23 07:48 adhesive tape AdvReac Verified 07/21/23 07:48 Exam Narrative Exam Narrative: Oropharynx free of lesions Chest clear to auscultation percussion Cardiac exam reveals no S3 or murmur Assessment & Plan Assessment & Plan narrative: History of sessile serrated adenomas with last colonoscopy negative need for follow-up colonoscopy. Risks, benefits, alternatives have been explained. Patient has also been off of her Eliquis.
--- NOTE | 2024-01-07 08:56 | PM.OP.COLON ---
Operative Date/Time/Diagnoses Date of procedure: 01/07/24 Pre-op diagnosis: See indication and findings Procedure & Clinicians Study performed: Colonoscopy Indications: History of sessile serrated adenomas with last colonoscopy negative need for follow-up colonoscopy Surgeon: Lali Cardoza Procedure Notes Procedure in detail: After informed consent was obtained the patient was placed in left lateral decubitus position. The adult video colonoscope was introduced the rectum and slowly advanced only to the sigmoid colon before I was unable to make a very tight turn. The pediatric colonoscope was substituted and wear a with a past the scope all the way to the cecum.. Preparation was good. On slow withdrawal mucosa was carefully examined. The scope was removed. The patient tolerated procedure well. Blood loss none Complications none Sedation mac Findings 1. Mild sigmoid diverticulosis with significant tortuosity 2. 8 mm semi pedunculated polyp at 45 cm hot snared and removed completely 3. Otherwise negative colonoscopy to cecum This will be Johanna's last colonoscopy. We will be in touch regarding the pathology. She can restart her Eliquis in 3-5 days
[2024-01-07] MEDS: LACTATED RINGERS 1,000 ML 42 ML IV (10:07)
[2024-01-07] MEDS: ePHEDrine 50 MG/ML VIAL IV (10:50)
== END 2024-01-07 11:44 | disposition home or self-care (01) ==
PROVIDERS: PCP Internal Medicine; Referring Provider Internal Medicine Gastroenterology; Visit Provider Internal Medicine Gastroenterology
PROC: 0DJD8ZZ Inspection of Lower Intestinal Tract, Via Natural or Artificial Opening Endoscopic (ICD-10-PCS; CPT 45378; principal; 2024-01-07 10:30)
DX: Z12.11 Encounter for screening for malignant neoplasm of colon (principal); Z86.010 Personal history of colon polyps; K57.30 Diverticulosis of large intestine without perforation or abscess without bleeding; D12.6 Benign neoplasm of colon, unspecified
CPT/HCPCS: 45385

== ENCOUNTER → 2024-01-19 09:12 | Outpatient (CLI) | payer MEDICARE, OTHER, SELFPAY ==
[2024-01-19 10:44] LABS: Hematocrit 43.9 % (36-46); Hemoglobin 14.9 g/dL (12.0-16.0); Mean Corpuscular HGB Conc 33.9 % (30-36); Mean Corpuscular Hemoglobin 31.1 PG (26-34); Mean Corpuscular Volume 91.7 fL (80-100); Platelet Count 160 X10^3/uL (150-400); Red Blood Cell Count 4.79 X10^6/uL (4.0-5.2); Red Cell Distribution Width 13.2 % (11.6-14.8); White Blood Cell Count 6.6 X10^3/uL (4.5-11.0)
[2024-01-19 10:58] LABS: Creatinine Urine Random 69.6 mg/dL
[2024-01-19 11:02] LABS: Microalbumi Creatinin Ratio Ur 43.1 ug/mg CR (<30)
[2024-01-19 11:10] LABS: Hemoglobin A1C% w Est Avg Glu 8.2 % (4.0-6.0)
[2024-01-19 11:22] LABS: Aspartate Aminotransferase 96 IU/L (14-36); BUN Creatinine Ratio 28.8 (6-22); Blood Urea Nitrogen 36 mg/dL (7-17); Calcium 10.3 mg/dL (8.4-10.2); Carbon Dioxide 24 mmol/L (22-32); Chloride 101 mmol/L (98-107); Cholesterol 160 mg/dL (140-199); Estimated Glomerular Filt Rate 44 mL/min (>60); Glucose 190 mg/dL (80-110); HDL Cholesterol 37 mg/dL (40-60); HEMOLYSIS 33 (0-50); LDL Cholesterol Calculated 43 mg/dL (<100); Potassium 4.6 mmol/L (3.4-5.1); Sodium 137 mmol/L (137-145); Triglycerides 398 mg/dL (35-150)
== END ==
PROVIDERS: PCP Internal Medicine; Referring Provider Internal Medicine; Visit Provider Internal Medicine
DX: E78.2 Mixed hyperlipidemia (principal); E11.69 Type 2 diabetes mellitus with other specified complication; E78.5 Hyperlipidemia, unspecified; I48.0 Paroxysmal atrial fibrillation
CPT/HCPCS: 36415; 80048; 80061; 82043; 82570; 83036; 84450; 85027

== ENCOUNTER → 2024-08-02 13:42 | Outpatient (CLI) | payer MEDICARE, OTHER, SELFPAY ==
[2024-08-02 15:50] LABS: BUN Creatinine Ratio 25.6 (6-22); Blood Urea Nitrogen 33 mg/dL (7-17); Carbon Dioxide 25 mmol/L (22-32); Chloride 100 mmol/L (98-107); Estimated Glomerular Filt Rate 42 mL/min (>60); Glucose 184 mg/dL (80-110); HEMOLYSIS < 15 (0-50); Potassium 4.4 mmol/L (3.4-5.1); Sodium 135 mmol/L (137-145)
[2024-08-02 16:59] LABS: Hemoglobin A1C% w Est Avg Glu 6.8 % (4.0-6.0)
== END ==
LOC: LAB 13:42
PROVIDERS: PCP Internal Medicine; Referring Provider Internal Medicine; Visit Provider Internal Medicine
DX: E11.69 Type 2 diabetes mellitus with other specified complication (principal); E78.5 Hyperlipidemia, unspecified
CPT/HCPCS: 36415; 80048; 83036

== ENCOUNTER → 2024-11-21 09:27 | Outpatient (CLI) | payer MEDICARE, OTHER, SELFPAY ==
--- NOTE | 2024-11-21 09:28 | DI.MG.S_ITS ---
BILATERAL DIGITAL SCREENING MAMMOGRAM 3D/2D WITH CAD: 11/21/2024 CLINICAL: Routine screening. Family history of breast cancer. Comparison is made to exams dated: 11/17/2023 mammogram, 10/16/2022 mammogram, and 10/10/2021 mammogram - [facility]. The breasts are extremely dense, which lowers the sensitivity of mammography (category d />75% glandular tissue). Current study was also evaluated with a Computer Aided Detection (CAD) system. There are benign calcifications in both breasts. There also are benign vascular calcifications in both breasts. Additionally, there are benign post operative findings in the left breast. No significant masses, calcifications, or other findings are seen in either breast. There has been no significant interval change. IMPRESSION: BENIGN There is no mammographic evidence of malignancy. A 1 year screening mammogram is recommended. Based on Tyrer-Cuzick model (a risk assessment model), the patient's lifetime risk is 21.1% and her 10 year risk is 0.0%. If a patient has an elevated risk, a more comprehensive evaluation should be considered and/or a referral to a genetic counselor. The [place] [employer], [employer], and NCCN Guidelines advise the consideration of Breast MRI as an adjunct to screening mammography in patients whose Lifetime risk to develop breast cancer is 20% or higher. This exam was interpreted at Station ID: [id number]. NOTE: For mammograms, a report in lay terms will be sent to the patient. Approximately 15% of breast malignancies will not be visualized mammographically. In the management of a palpable breast mass, a negative mammogram must not discourage biopsy of a clinically suspicious lesion. Electronically Signed By: Alonso guzman/raoul:11/22/2024 08:33:34 letter sent: Normal Exam ACR BI-RADS Category 2: Benign
== END ==
PROVIDERS: PCP Internal Medicine; Referring Provider Internal Medicine; Visit Provider Internal Medicine
DX: Z12.31 Encounter for screening mammogram for malignant neoplasm of breast (principal); Z80.3 Family history of malignant neoplasm of breast; R92.343 Mammographic extreme density, bilateral breasts
CPT/HCPCS: 77063; 77067

== ENCOUNTER → 2025-01-19 09:41 | Outpatient (CLI) | payer MEDICARE, OTHER, SELFPAY ==
[2025-01-19 10:27] LABS: Hemoglobin 14.6 g/dL (12.0-16.0); Mean Corpuscular HGB Conc 33.8 % (30-36); Mean Corpuscular Hemoglobin 30.7 PG (26-34); Mean Corpuscular Volume 90.7 fL (80-100); Platelet Count 150 X10^3/uL (150-400); Red Blood Cell Count 4.75 X10^6/uL (4.0-5.2); Red Cell Distribution Width 14.1 % (11.6-14.8)
[2025-01-19 10:35] LABS: Hemoglobin A1C% w Est Avg Glu 5.9 % (4.0-6.0)
[2025-01-19 10:42] LABS: Alanine Aminotransferase 56 IU/L (<35); Albumin 4.7 g/dL (3.5-5.0); Albumin Globulin Ratio 1.4 (1.0-2.8); Alkaline Phosphatase 87 U/L (38-126); Aspartate Aminotransferase 53 IU/L (14-36); BUN Creatinine Ratio 24.4 (6-22); Bilirubin Total 0.7 mg/dL (0.2-1.3); Blood Urea Nitrogen 29 mg/dL (7-17); Calcium 10.3 mg/dL (8.4-10.2); Carbon Dioxide 26 mmol/L (22-32); Chloride 103 mmol/L (98-107); Cholesterol 156 mg/dL (140-199); Estimated Glomerular Filt Rate 46 mL/min (>60); Globulin 3.3 g/dL (1.7-4.1); Glucose 128 mg/dL (80-110); HDL Cholesterol 44 mg/dL (40-60); HEMOLYSIS < 15 (0-50); LDL Cholesterol Calculated 62 mg/dL (<100); Sodium 140 mmol/L (137-145); Triglycerides 248 mg/dL (35-150)
[2025-01-19 10:49] LABS: Creatinine Urine Random 45.08 mg/dL
[2025-01-19 10:54] LABS: Microalbumin Urine Random 1.5 mg/dL (0-1.6)
[2025-01-19 11:15] LABS: TSH w/ Reflex to FT4 2.03 uIU/mL (0.47-4.68)
== END ==
PROVIDERS: PCP Internal Medicine; Referring Provider Internal Medicine; Visit Provider Internal Medicine
DX: E11.69 Type 2 diabetes mellitus with other specified complication (principal); E78.5 Hyperlipidemia, unspecified; E78.2 Mixed hyperlipidemia; N18.31 Chronic kidney disease, stage 3a
CPT/HCPCS: 36415; 80053; 80061; 82043; 82570; 83036; 84443; 85027

== ENCOUNTER → 2025-07-28 09:23 | Outpatient (CLI) | payer MEDICARE, OTHER, SELFPAY ==
[2025-07-28 11:04] LABS: Hemoglobin A1C% w Est Avg Glu 8.5 % (4.0-6.0)
[2025-07-28 11:22] LABS: Blood Urea Nitrogen 34 mg/dL (7-17); Calcium 9.4 mg/dL (8.4-10.2); Carbon Dioxide 22 mmol/L (22-32); Chloride 101 mmol/L (98-107); Estimated Glomerular Filt Rate 46 mL/min (>60); Glucose 231 mg/dL (70-99); HEMOLYSIS < 15 (0-50); Potassium 4.2 mmol/L (3.4-5.1); Sodium 135 mmol/L (137-145); Uric Acid 7.1 mg/dL (2.5-6.2)
== END ==
PROVIDERS: PCP Internal Medicine; Referring Provider Internal Medicine; Visit Provider Internal Medicine
DX: E11.69 Type 2 diabetes mellitus with other specified complication (principal); E78.5 Hyperlipidemia, unspecified; M1A.9XX0 Chronic gout, unspecified, without tophus (tophi)
CPT/HCPCS: 36415; 80048; 83036; 84550

== ENCOUNTER → 2025-09-26 09:43 | Outpatient (CLI) | payer MEDICARE, OTHER, SELFPAY ==
--- NOTE | 2025-09-26 09:47 | DI.RAD.S_ITS ---
PROCEDURE: XR FOOT LT MIN 3V INDICATIONS: Gout TECHNIQUE: 3 views of the foot were acquired. COMPARISON: None. FINDINGS: Bones: No fractures or dislocations. No suspicious bony lesions. Mild 1st MTP joint space narrowing. Moderate tarsometatarsal and intertarsal joint space narrowing and osteophytes. Well-circumscribed erosions noted at the medial and lateral aspect of the 1st proximal phalanx at the interphalangeal joint. Probable large erosion at the medial margin of the medial cuneiform. Additional likely erosion at the 5th metatarsal tuberosity. Soft tissues: Soft tissue swelling without abnormal calcifications. IMPRESSION: No acute fracture. Multifocal degenerative disease. Soft tissue swelling with erosions of the medial cuneiform and 1st proximal phalanx. These findings could be due to gout. Dictated by: Breanne Mckeon M.D. on 09/26/2025 at 13:50 Approved by: Breanne Mckeon M.D. on 09/26/2025 at 13:52
--- NOTE | 2025-09-26 09:47 | DI.RAD.S_ITS ---
PROCEDURE: XR FOOT RT MIN 3V INDICATIONS: Gout TECHNIQUE: 3 views of the foot were acquired. COMPARISON: None. FINDINGS: Bones: There is normal bony alignment with weight bearing. No fractures or dislocations. No suspicious bony lesions. Prominent bunion. Moderate to marked diffuse midfoot joint space narrowing and osteophytes. Mild narrowing of the 1st MTP joint. Small plantar calcaneal spur noted. Soft tissues: Moderate soft tissue swelling centered at the 1st MTP joint. No erosions are noted. No soft tissue calcifications. IMPRESSION: No acute fracture. Prominent midfoot degenerative disease. 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 Soft tissue swelling without abnormal calcifications. Dictated by: Breanne Mckeon M.D. on 09/26/2025 at 13:46 Approved by: Breanne Mckeon M.D. on 09/26/2025 at 13:49
== END ==
PROVIDERS: PCP Internal Medicine; Referring Provider Podiatrist; Visit Provider Podiatrist
DX: M10.9 Gout, unspecified (principal); M19.072 Primary osteoarthritis, left ankle and foot; M19.071 Primary osteoarthritis, right ankle and foot; M85.872 Other specified disorders of bone density and structure, left ankle and foot; M21.611 Bunion of right foot; M77.31 Calcaneal spur, right foot; M79.89 Other specified soft tissue disorders
CPT/HCPCS: 73630